=== PATIENT | male | born 1970 | race African-American/Black ===

== ENCOUNTER 2017-07-26 17:36 | Emergency (ER) | payer OTHER ==
[~2017-07-26] VITALS: Ht 180.3 cm; Wt 107.2 kg
[2017-07-26 17:40] VITALS: TEMP 36.6; Ht 180.3 cm; Wt 107.2 kg
[2017-07-26] MEDS ORDERED: HYDR1SUS2 PO (18:10)
[2017-07-26] MEDS ORDERED: LISI-461 PO (18:10)
[2017-07-26] MEDS ORDERED: TRAM-10 PO (18:10)
[2017-07-26] MEDS ORDERED: ALBU18002 PO (18:10)
[2017-07-26] MEDS ORDERED: ALBUTEROL HFA 8 GM INHALER INH STA (18:32)
[2017-07-26] MEDS ORDERED: LISINOPRIL 10 MG TAB PO STA (18:32)
[2017-07-26] MEDS ORDERED: TRAMADOL HCL 50 MG TAB PO STA (18:32)
[2017-07-26] MEDS ORDERED: CHLORPH/HYDROCOD EXT REL LIQ 5ML UDP PO STA (18:32)
[2017-07-26] MEDS ORDERED: HYCODAN 60ML BOTTLE HOMEPACK PO STA (18:53)
[2017-07-26] MEDS ORDERED: TRAMADOL HCL 50 MG HOME PACK PO STA (18:53)
[2017-07-26] MEDS ORDERED: LISI10TA PO (18:57)
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
[2017-07-26 19:40] VITALS: BP 122/79; PULSE 78; O2SAT 97
--- NOTE | 2017-07-27 02:23 | EMERGENCY ROOM VISIT NOTE ---
ED Visit Note First contact with patient: 18:16 The patient was seen and examined with Fernando Hopper PA-C. I agree with the history, physical and findings. Please see the note for disposition and details. The patient presented requesting prescriptions for multiple medications including tramadol and Tussionex. After Fernando evaluated the patient he was concerned and was rightfully reluctant prescribing Tussionex for the patient's complaints of asthma. 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 I did evaluate the patient. He was challenging to interview as he was interrupting discussions and explanations frequently. I examined the patient. The patient was wheezing. He refused any other treatment in the hospital. I did offer him a nebulizer. I believe the patient would need a steroid and he absolutely refused. He specifically wanted those medications. Fernando had written a prescription for lisinopril and albuterol. The patient was evasive about getting his pharmacy contact information. We wanted to verify his prescriptions as to get the exact dosing and proper medications prescribed. He was very confrontational and demanding those medications. He would not accept substitutes and wanted full prescriptions. I do not believe it is reasonable to treat asthma with Tussionex especially in the light of not having any prior contact with the patient or prior records to review. I tried on several occasions after Fernando to convince him to allow us to work him up or thoroughly and appropriately but he refused. After not getting his prescriptions the patient just demanded to leave and told me to get out of his room. I asked him to wait for his discharge paperwork and told nursing to provide him with all the necessary pieces of paper. The patient then left the emergency department without his prescription for lisinopril and the albuterol MDI that we gave him. Please refer to Fernando's note regarding the details of this interaction.I gave my usual and customary discussion regarding this issue.
== END 2017-07-26 19:42 | disposition home or self-care (01) ==
LOC: C.EDB 17:38 → C.EDD 19:42
DX: Z76.0 Encounter for issue of repeat prescription (principal); J45.909 Unspecified asthma, uncomplicated; F17.200 Nicotine dependence, unspecified, uncomplicated; R00.0 Tachycardia, unspecified; R03.0 Elevated blood-pressure reading, without diagnosis of hypertension